=== PATIENT | male | born 1955 | race Caucasian/White ===

== ENCOUNTER 2020-09-22 13:25 | Observation (INO) | payer OTHER, SELFPAY ==
[2020-09-22] VITALS (28 sets, daily range): BP systolic 118–187; BP diastolic 76–106; PULSE 81–195; RESP 13–25; TEMP 36.3–36.9; O2SAT 94–98; BMI 29.2; BMI 32.7
--- NOTE | 2020-09-22 13:36 | DI.CT.S_ITS ---
PROCEDURE: CT STROKE INDICATIONS: confusion, slurring words TECHNIQUE: Noncontrast 4.5 mm thick angled axial sections acquired from the foramen magnum to the vertex, with coronal reformats. For radiation dose reduction, the following was used: automated exposure control, adjustment of mA and/or kV according to patient size. COMPARISON: None. FINDINGS: Image quality: Excellent. CSF spaces: Basal cisterns are patent. No extra-axial fluid collections. Ventricles are normal in size and shape. Brain: No midline shift. No intracranial masses or hemorrhage. No area of hypodensity in a large vascular distribution to suggest acute infarction. Intracranial atherosclerotic calcifications. Skull and face: Calvarium and visualized facial bones are intact, without suspicious lesions. Sinuses: Visualized sinuses and mastoids are clear. IMPRESSION: No acute intracranial abnormality. Comment: Findings were discussed with Dr. Angelo Figueroa at 1:55 p.m. This study fulfills neurological imaging criteria for inclusion or exclusion of acute stroke therapies based on available published neurological imaging guidelines. Dictated by: Steven Rader M.D. on 09/22/2020 at 13:52 Approved by: Steven Rader M.D. on 09/22/2020 at 13:56
--- NOTE | 2020-09-22 14:07 | ED_ITS ---
HPI - Neuro Symptoms/Deficit General Chief Complaint: Neuro Symptoms/Deficit Stated Complaint: cognitive impairment, confusion, started today Time Seen by Provider: 09/22/20 13:36 Source: patient Mode of arrival: Ambulatory Limitations: no limitations History of Present Illness HPI Narrative: Patient is a 65-year-old male who arrives to the emergency department by private vehicle with his for evaluation of confusion. Unsure the exact onset because his was not with him at the time but it was this morning. His states that he was at his normal state health this morning. He was out on a boat with a friend fishing for shrimp when the patient's received a call from the friend that he was on the boat with stating that he was acting funny. Apparently he seemed to be very confused. Was repetitively asking questions. Unsure if there was any slurring of the words but potentially this did happen. Did not appear to be any weakness. When the patient's arrived to pick him up to bring him to the emergency department she stated that he did seem somewhat confused and in route here to the emergency department asked her several times the same question over and over. Upon arrival here to the emergency department patient has no symptoms. He states that he thinks that maybe he was confused earlier but nothing more specific than this. On Anticoagulants: No Related Data Home Medications Medication Instructions Recorded Confirmed losartan 09/22/20 Allergies Allergy/AdvReac Type Severity Reaction Status Date / Time No Known Drug Allergies Allergy Verified 09/22/20 13:29 Review of Systems Constitutional Constitutional: Denies headache(s) Eyes Eyes: Denies blurry vision ENT Ears, Nose, Mouth, and Throat: Denies headache(s) Cardiovascular Cardiovascular: Denies chest pain and Denies dyspnea Respiratory Respiratory: Denies dyspnea Gastrointestinal Gastrointestinal: Denies abdominal pain Genitourinary Genitourinary: Reports system reviewed and no additional complaints, except as documented Musculoskeletal Musculoskeletal: Reports system reviewed and no additional complaints, except as documented Integumentary/Breasts Skin/Breast: Reports system reviewed and no additional complaints, except as documented Neurologic Neurologic: Reports confusion and Denies headache(s) Psychiatric Psychiatric: Reports confusion Endocrine Endocrine: Reports system reviewed and no additional complaints, except as documented Hematologic/Lymphatic On Anticoagulants: No Allergic/Immunologic Allergic/Immunologic: Reports system reviewed and no additional complaints, except as documented Patient History Medical History Atonic bladder Chronic kidney disease Hypertension Sleep apnea, obstructive Social History household members: family Smoking Status: Never smoker alcohol intake: current Smoking Status: Unknown if ever smoked alcohol intake frequency: a few times a week Substance Use Type: does not use Exam Initial Vital Signs Initial Vital Signs: Vital Signs Temperature 98.4 F 09/22/20 13:29 Pulse Rate 81 09/22/20 13:29 Respiratory Rate 14 09/22/20 13:29 Blood Pressure 130/97 H 09/22/20 13:29 Pulse Oximetry 97 09/22/20 13:29 Const General: cooperative, healthy appearing, comfortable and well developed HENME Head: normal to inspection and normocephalic Eyes General: appearance normal, both eyes and all related structures Resp Effort & Inspection: normal respiratory effort Auscultation: clear to auscultation bilaterally Cardio Rate: tachycardic Rhythm: abnormal rhythm Pulses: radial pulses present GI Inspection: non-distended Palpation: soft and No tender Back/Spine/Pelvis Back: normal to inspection Skin Lesions: no lesions Rashes: no rashes Neuro General: patient alert, patient awake, patient oriented x3 and moves all extremities Gait: normal gait Sensory Exam: no sensory deficits noted Extrem General: normal to inspection, capillary refill normal and No edema Psych Appearance: grossly normal and well kempt Scores GCS Brennen coma scale eye opening: Spontaneous Brennen coma scale verbal response: Orientated Deputy coma scale motor response: Obey commands Brennen coma scale total score: 15 Course Orders Ordered: ED Orders 09/22/20 13:25 Magnesium Stat 09/22/20 13:36 CT Stroke Stat 09/22/20 13:40 Acetaminophen Stat Complete Blood Count AUTO DIFF Stat Comprehensive Metabolic Panel Stat Ethanol (ETOH) Stat Lipase Stat Troponin & CK Cardiac Panel Stat 09/22/20 14:10 Urine Drug Screen, Rapid Stat EKG-12 Lead Stat 09/22/20 14:25 Ammonia (NH3) Stat 09/22/20 15:13 COVID19 - ADMIT (TRAUMA MANAGER swab/PCR) Stat Acetaminophen (Acetaminophen 325 Mg Tablet) 650 mg PO Q6HR PRN PRN Reason: Fever/pain Apixaban (Apixaban 5 Mg Tablet) 5 mg PO BID RYAN Diltiazem HCl (Diltiazem Sr 90 Mg) 90 mg PO BID RYAN Diltiazem HCl 125 mg/ Sodium (Chloride) 125 mls @ 5 mls/hr IV TITRATE RYAN; Protocol Last Titration: 09/22/20 16:30 Dose: 15 mg/hr, 15 mls/hr Documented by: Titration: 09/22/20 16:01 Dose: 15 mg/hr, 15 mls/hr Documented by: Titration: 09/22/20 15:02 Dose: 10 mg/hr, 10 mls/hr Documented by: Admin: 09/22/20 14:37 Dose: 5 mg/hr, 5 mls/hr Documented by: JIE Losartan Potassium (Losartan 50 Mg Tablet) 50 mg PO DAILY RYAN Discontinued Medications Aspirin (Aspirin 81 Mg Chew Tab) 324 mg PO NOW ONE Stop: 09/22/20 14:15 Last Admin: 09/22/20 14:31 Dose: 324 mg Documented by: JIE Diltiazem HCl (Diltiazem 5 Mg/Ml Sdv) 10 mg IV NOW ONE Stop: 09/22/20 14:15 Last Admin: 09/22/20 14:31 Dose: 10 mg Documented by: JIE Lactated Ringer's (Lactated Ringers) 1,000 mls @ 150 mls/hr IV CONT RYAN Vital Signs Vital signs: Vital Signs - 8 hr 09/22/20 13:29 09/22/20 14:17 09/22/20 14:18 Temperature 98.4 F Pulse Rate 81 181 H 181 H Respiratory Rate 14 16 17 Blood Pressure 130/97 H 140/85 Pulse Oximetry 97 96 95 09/22/20 14:30 09/22/20 14:31 09/22/20 14:44 Temperature Pulse Rate 182 H 195 H 132 H Respiratory Rate 16 19 Blood Pressure 118/81 118/81 170/101 H Pulse Oximetry 95 95 09/22/20 14:45 Temperature Pulse Rate 133 H Respiratory Rate 18 Blood Pressure 175/84 H Pulse Oximetry 96 MDM - Neuro Symptoms/Deficit Lab Data Attestation: I reviewed the patient's lab results. Result diagrams: 09/22/20 13:40 09/22/20 13:40 Labs: Lab Results 09/22/20 09/22/20 09/22/20 Range/Units 13:25 13:40 13:40 WBC 11.2 H (4.5-11.0) X10^3/uL RBC 5.69 (4.5-5.9) X10^6/uL Hgb 15.9 (13.5-17.5) g/dL Hct 48.7 (41-53) % MCV 85.6 (80-100) fL MCH 27.9 (26-34) PG MCHC 32.6 (30-36) % RDW 15.0 H (11.6-14.8) % Plt Count 221 (150-400) X10^3/uL Neut % (Auto) 88.9 H (50-75) % Lymph % (Auto) 7.3 L (25-40) % Greenwood % (Auto) 3.4 (3-14) % Eos % (Auto) 0.1 L (2-4) % Baso % (Auto) 0.3 (0-2) % Neut # (Auto) 9900 H (0709-8685) /uL Lymph # (Auto) 800 L (8020-1790) /uL Greenwood # (Auto) 400 (0-900) /uL Eos # (Auto) 0 (0-450) /uL Baso # (Auto) 0 (0-100) /uL Sodium 141 (137-145) mmol/L Potassium 3.7 (3.4-5.1) mmol/L Chloride 105 (98-107) mmol/L Carbon Dioxide 24 (22-32) mmol/L BUN 25 H (9-20) mg/dL Creatinine 1.36 H (0.66-1.25) mg/dL Estimated GFR 52.8 L (>60) mL/min BUN/Creatinine Ratio 18.4 (6-22) Glucose 111 H (80-110) mg/dL Calcium 9.6 (8.4-10.2) mg/dL Magnesium 1.9 (1.6-2.3) mg/dL Total Bilirubin 0.9 (0.2-1.3) mg/dL AST 48 (17-59) IU/L ALT 39 (<50) IU/L Alkaline Phosphatase 67 (38-126) U/L Ammonia (9-30) umol/L Total Creatine Kinase 164 (55-170) U/L CK-MB (CK-2) 2.52 H (<2.37) ng/mL CK-MB (CK-2) Rel Index 1.5 (1.5-5.0) % Troponin I < 0.012 (0.01-0.034) ng/mL Total Protein 8.0 (6.3-8.2) g/dL Albumin 4.7 (3.5-5.0) g/dL Globulin 3.3 (1.7-4.1) g/dL Albumin/Globulin Ratio 1.4 (1.0-2.8) Lipase 78 (23-300) U/L Acetaminophen < 10 L (10-30) ug/mL Ethyl Alcohol < 10 ( - 10) mg/dL 09/22/20 Range/Units 14:25 WBC (4.5-11.0) X10^3/uL RBC (4.5-5.9) X10^6/uL Hgb (13.5-17.5) g/dL Hct (41-53) % MCV (80-100) fL MCH (26-34) PG MCHC (30-36) % RDW (11.6-14.8) % Plt Count (150-400) X10^3/uL Neut % (Auto) (50-75) % Lymph % (Auto) (25-40) % Greenwood % (Auto) (3-14) % Eos % (Auto) (2-4) % Baso % (Auto) (0-2) % Neut # (Auto) (9695-5267) /uL Lymph # (Auto) (6986-6106) /uL Greenwood # (Auto) (0-900) /uL Eos # (Auto) (0-450) /uL Baso # (Auto) (0-100) /uL Sodium (137-145) mmol/L Potassium (3.4-5.1) mmol/L Chloride (98-107) mmol/L Carbon Dioxide (22-32) mmol/L BUN (9-20) mg/dL Creatinine (0.66-1.25) mg/dL Estimated GFR (>60) mL/min BUN/Creatinine Ratio (6-22) Glucose (80-110) mg/dL Calcium (8.4-10.2) mg/dL Magnesium (1.6-2.3) mg/dL Total Bilirubin (0.2-1.3) mg/dL AST (17-59) IU/L ALT (<50) IU/L Alkaline Phosphatase (38-126) U/L Ammonia < 9 L (9-30) umol/L Total Creatine Kinase (55-170) U/L CK-MB (CK-2) (<2.37) ng/mL CK-MB (CK-2) Rel Index (1.5-5.0) % Troponin I (0.01-0.034) ng/mL Total Protein (6.3-8.2) g/dL Albumin (3.5-5.0) g/dL Globulin (1.7-4.1) g/dL Albumin/Globulin Ratio (1.0-2.8) Lipase (23-300) U/L Acetaminophen (10-30) ug/mL Ethyl Alcohol ( - 10) mg/dL Imaging Data CT scan - head: Radiologist's Impression: [address] [id number] Scan ReportSigned Patient: Guille Morales MMR#: [id number]: 7Acct:[id number]/Sex: 65 / MDate of Service: 09/22/20Loc: EDAccession Number: [id number] Procedure: CT Stroke Ordering Provider: Angelo Figueroa D.O. PROCEDURE: CT STROKE INDICATIONS: confusion, slurring words TECHNIQUE: Noncontrast 4.5 mm thick angled axial sections acquired from the foramen magnum to the vertex, with coronal reformats. For radiation dose reduction, the following was used: automated exposure control, adjustment of mA and/or kV according to patient size. COMPARISON: None. FINDINGS: Image quality: Excellent. CSF spaces: Basal cisterns are patent. No extra-axial fluid collections. Ventricles are normal in size and shape. Brain: No midline shift. No intracranial masses or hemorrhage. No area of hypodensity in a large vascular distribution to suggest acute infarction. Intracranial atherosclerotic calcifications. Skull and face: Calvarium and visualized facial bones are intact, without suspicious lesions. Sinuses: Visualized sinuses and mastoids are clear. IMPRESSION: No acute intracranial abnormality. Comment: Findings were discussed with Dr. Angelo Figueroa at 1:55 p.m. This study fulfills neurological imaging criteria for inclusion or exclusion of acute stroke therapies based on available published neurological imaging guidelines. Dictated by: Steven Rader M.D. on 09/22/2020 at 13:52 Approved by: Steven Rader M.D. on 09/22/2020 at 13:56 ECG Data Attestation: I personally reviewed and interpreted this ECG as follows: Prior ECG tracings: not available for review Interpretation: Atrial fibrillation Ventricular rate of 173 Left axis deviation Normal QRS MDM Narrative Medical decision making narrative: Upon arrival patient really does not describe any symptoms. He states that he maybe was a little confused earlier today but does not think that he is confused now. He is alert oriented x3 but obviously is somewhat slow to answer questions. He has no chest pain or shortness of breath. In triage was reported that his heart rate was less than 100. Patient received an EKG and workup for his presenting symptoms and it was found that he was in AFib with RVR. Heart rate was greater than 150. Patient does not express any chest pain or shortness of breath or fast heart rate. Unsure exactly when the symptoms started. Could have potentially been since arrival here to the emergency department given his triage vitals or he potentially could of been in an out of atrial fibrillation for longer. There was some concern about TIA because of his confusion and also because the atrial fibrillation. Was given an aspirin. Start on Cardizem. Discussed the case with Dr. Olivo with Internal Medicine who will admit for further evaluation and treatment. Discussed the admission with the patient. Both he and his expressed understanding and agreement. Critical Care Time Critical Care Time Critical Care Time: Yes Total Critical Care Time: 35 Attestation: The high probability of a clinically significant, sudden or life threatening deterioration of the cardiovascular system(s) required my full and direct attention, intervention and personal management. The aggregate critical care time was 35 minutes. This time is in addition to time spent performing reported procedures but includes the following: [x] Data Review and interpretation [x] Patient assessment and monitoring of vital signs [x] Documentation [x] Medication orders and management Discharge Plan Departure Patient Disposition: Admitted As Inpatient Clinical Impression: Confusion, Atrial fibrillation with RVR Admit Date/Time: 09/22/20 14:53 Admit Provider: Antoni Olivo
[2020-09-22 14:19] LABS: Add Manual Diff / Slide Review NO; Basophils Absolute Auto 0 /uL (0-100); Basophils Percent Auto 0.3 % (0-2); Eosinophils Absolute Auto 0 /uL (0-450); Eosinophils Percent Auto 0.1 % (2-4); Hematocrit 48.7 % (41-53); Hemoglobin 15.9 g/dL (13.5-17.5); Lymphocytes Absolute Auto 800 /uL (1100-4500); Lymphocytes Percent Auto 7.3 % (25-40); Mean Corpuscular HGB Conc 32.6 % (30-36); Mean Corpuscular Hemoglobin 27.9 PG (26-34); Mean Corpuscular Volume 85.6 fL (80-100); Monocytes Absolute Auto 400 /uL (0-900); Monocytes Percent Auto 3.4 % (3-14); Neutrophils Absolute Auto 9900 /uL (1500-7000); Neutrophils Percent Auto 88.9 % (50-75); Platelet Count 221 X10^3/uL (150-400); Red Blood Cell Count 5.69 X10^6/uL (4.5-5.9); White Blood Cell Count 11.2 X10^3/uL (4.5-11.0)
[2020-09-22 14:21] LABS: Acetaminophen < 10 ug/mL (10-30); Alanine Aminotransferase 39 IU/L (<50); Albumin 4.7 g/dL (3.5-5.0); Albumin Globulin Ratio 1.4 (1.0-2.8); Alkaline Phosphatase 67 U/L (38-126); Aspartate Aminotransferase 48 IU/L (17-59); BUN Creatinine Ratio 18.4 (6-22); Bilirubin Total 0.9 mg/dL (0.2-1.3); Blood Urea Nitrogen 25 mg/dL (9-20); Calcium 9.6 mg/dL (8.4-10.2); Carbon Dioxide 24 mmol/L (22-32); Chloride 105 mmol/L (98-107); Creatine Kinase 164 U/L (55-170); Estimated Glomerular Filt Rate 52.8 mL/min (>60); Ethanol (ETOH) < 10 mg/dL; Globulin 3.3 g/dL (1.7-4.1); Glucose 111 mg/dL (80-110); Lipase 78 U/L (23-300); Potassium 3.7 mmol/L (3.4-5.1); Sodium 141 mmol/L (137-145)
[2020-09-22] MEDS: dilTIAZem 5 MG/ML SDV 10 MG IV (14:31)
[2020-09-22] MEDS: ASPIRIN 81 MG CHEW TAB 324 MG PO (14:31)
[2020-09-22 14:32] LABS: Magnesium 1.9 mg/dL (1.6-2.3)
[2020-09-22 14:32] LABS: Troponin I < 0.012 ng/mL (0.01-0.034)
[2020-09-22 14:36] LABS: CKMB % Relative Index 1.5 % (1.5-5.0); Creatine Kinase MB 2.52 ng/mL (<2.37); HEMOLYSIS 20 (0-50)
[2020-09-22] MEDS: dilTIAZem 125 MG in SODIUM CHLORIDE 0.9% 100 ML IV (14:37)
[2020-09-22 14:43] LABS: Ammonia (NH3) < 9 umol/L (9-30)
--- NOTE | 2020-09-22 15:21 | PC.NURSE ---
Pt speech repetitive, does not recall earlier events.
[2020-09-22 16:10] LABS: COVID19 - ADMIT (NP swab/PCR) Negative (Negative)
--- NOTE | 2020-09-22 16:24 | PC.NURSE ---
report given to Tasneem [facility] ICU
--- NOTE | 2020-09-22 16:51 | DI.RAD.S_ITS ---
PROCEDURE: XR CHEST 1V INDICATIONS: afib TECHNIQUE: One view of the chest was acquired. COMPARISON: None. FINDINGS: Surgical changes and devices: None. Lungs and pleura: Lungs are clear. No pleural effusions or pneumothorax. Mediastinum: Mediastinal contours appear normal. Heart size is within normal limits given portable technique. Bones and chest wall: No suspicious bony lesions. Overlying soft tissues appear unremarkable. IMPRESSION: Chest without acute cardiopulmonary abnormalities Dictated by: Sukumar Romo M.D. on 09/22/2020 at 18:58 Approved by: Sukumar Romo M.D. on 09/22/2020 at 18:58
--- NOTE | 2020-09-22 16:55 | DI.ECHO.S_ITS ---
[facility] +---------+ : : [address] [place] : : : : [id number] : : : : Phone: [phone] Echocardiogram Report + + :Name: TARAS GLASER Study Date: 09/23/2020 Height: 71 in : :[facility] ReadingLocation: Weight: 210 lb : : Gender: Male BSA: 2.2 m2 : :: 1955 Age: 65 yrs BP: 121/79 mmHg: :Reason For Study: ATRIAL FIBRILLATION : :Ordering Physician: ALESIA, : :TRELL Performed By: Vandana Ritter : :Referring: TRELL LOPEZ : + + Interpretation Summary The left ventricle is normal in size. Left ventricular systolic function is normal. The ejection fraction is estimated to be 50-55%. There are no focal wall motion abnormalities. The right ventricle is normal size. Right ventricular systolic function is at the lower limits of normal. The right ventricular systolic pressure is estimated to be at least 28 mmHg based on an estimated right atrial pressure of 8 mm Hg. The left atrium is severely dilated. The right atrium is moderately dilated. The aortic valve is bicuspid. The aortic valve opens well. There is no other significant valvular heart disease. The ascending aorta is mildly enlarged. Procedure: A two-dimensional transthoracic echocardiogram with color flow and Doppler was performed. The study quality was technically adequate. There is no prior echocardiogram noted for this patient. The patient was in atrial fibrillation with heart rates between 88-124 bpm during the exam. Left Ventricle: The left ventricle is normal in size. Left ventricular wall thickness is borderline increased. Left ventricular systolic function is normal. The ejection fraction is estimated to be 50-55%. There are no focal wall motion abnormalities. Diastolic function could not be accurately assessed due to atrial fibrillation. Right Ventricle: The right ventricle is normal size. Right ventricular systolic function is at the lower limits of normal. Atria: The left atrium is severely dilated. The right atrium is moderately dilated. There is no Doppler evidence for an interatrial shunt. Mitral Valve: The mitral valve leaflets appear mildly thickened, but open well. There is trace mitral regurgitation. Aortic Valve: The aortic valve opens well. The aortic valve is bicuspid. There is no aortic valve stenosis. No aortic regurgitation is present. Tricuspid Valve: The tricuspid valve is normal in structure and function. There is mild tricuspid regurgitation. The right ventricular systolic pressure is estimated to be at least 28 mmHg based on an estimated right atrial pressure of 8 mm Hg. Pulmonic Valve: The pulmonic valve is not well seen, but is grossly normal. There is no pulmonic valvular regurgitation. There is no other significant valvular heart disease. Great Vessels: The aortic root is normal size. The ascending aorta is mildly enlarged. The IVC is dilated (diameter is greater than 2.1 cm) yet it collapses greater than 50% with a sniff. This suggests a right atrial pressure of 8 mm Hg. Pericardium/ Pleura There is no pericardial effusion. There is no pleural effusion. MMode/2D Measurements & Calculations LVIDd: 5.4 cm LVOT diam: 2.1 cm LVIDs: 4.4 cm Ao root diam: 3.3 cm FS: 18.0 % asc Aorta Diam: 3.7 cm EPSS: 0.90 cm Ao Arch Diam (Prox Trans): 3.0 cm IVSd: 1.3 cm LVPWd: 1.2 cm LV huber. diameter/BSA (cm/m^2): 2.5 LV sys. diameter/BSA (cm/m^2): 2.1 LA A2 area: 31.1 cm2 RA long axis: 6.2 cm LA A4 area: 30.9 cm2 RA area: 27.5 cm2 LA length (vol): 7.1 cm RA vol: 103.0 ml LA vol: 114.5 ml RA : 47.8 ml/m2 LA vol index: 53.2 ml/m2 IVC diam: 2.3 cm RVD1 (basal): 3.1 cm TAPSE: 1.7 cm Doppler Measurements & Calculations Ao V2 max: 123.4 cm/sec LVOT Max Jeronimo: 90.9 cm/sec Ao V2 mean: 89.9 cm/sec LV V1 max P.3 mmHg Ao max P.1 mmHg LV V1 VTI: 14.9 cm Ao mean P.6 mmHg DARRYL(I,D): 2.6 cm2 Ao V2 VTI: 19.1 cm DARRYL(V,D): 2.5 cm2 sev ratio: 0.78 DARRYL indexed to BSA (cm^2/m^2): 1.2 MV E max jeronimo: 124.6 cm/sec TR max jeronimo: 224.0 cm/sec MV A max jeronimo: 1.4 cm/sec TR max P.1 mmHg MV E/A: 89.8 PA V2 max: 91.7 cm/sec Med Peak E' Jeronimo: 12.4 cm/sec PA V2 mean: 63.1 cm/sec E/E' med: 10.1 PA mean P.8 mmHg Lat Peak E' Jeronimo: 11.0 cm/sec PA pr(Accel): 46.5 mmHg E/E' lat: 11.4 E/e' average: 10.7 MV dec time: 0.17 sec SV(LVOT): 50.5 ml Reading Physician:01:01 PM
--- NOTE | 2020-09-22 17:30 | PM.HP.1 ---
History of Present Illness History of Present Illness Date Patient Seen: 09/22/20 Time Patient Seen: 17:00 Date of Onset of Symptoms: 09/22/20 Chief complaint: cognitive impairment, confusion, started today Narrative: Patient is a 65-year-old male with history of hypertension, sleep apnea, on CPAP, mild CKD, atonic bladder presents to ED due to acute confusional episode. He was out on his boat with a friend and noted to appear disoriented with repetitive questioning. Patient's met him at the doc and also noted that he appeared confused and kept repeating himself. He has never experienced this kind of thing before. When he came in to ED, initial heart rate was 80 but subsequent heart rates were variable in the 150s to 180 in AFib rhythm. Patient has not been diagnosed with AFib in the past but states that for a long time he has noticed his heart rate can get real high. Patient denies dyspnea on exertion, chest pain, palpitations. He denies acute vision change, facial droop, slurred speech, unilateral weakness. He has not had fevers, chills or cough. He self caths for atonic bladder. He uses CPAP for sleep apnea. In ED, patient was also hypertensive with BP in the 180/105 range in addition to AFib tachycardia. O2 sats were normal. His WBC is mildly elevated at 11.2. His creatinine is 1.36 consistent with known history of mild CKD. Troponin is normal. EKG shows AFib with nonspecific T-wave abnormality. Family history: Brother with AFib. Father had angina. Social history: , nonsmoker, occasional EtOH, no drug use. He is very physically active. Patient History Medical History (Updated 09/22/20 @ 17:40 by Antoni Olivo MD) Atonic bladder Chronic kidney disease Hypertension Sleep apnea, obstructive Family & Social History Safety & Behavioral: Feels Safe in Current Yes Environment Been Physically Hurt or No Threatened By a Person Tobacco & Substance use: Smoking Status Unknown if ever smoked alcohol intake frequency a few times a week Substance Use Type does not use Meds Home Medications and Allergies Home Medications Medication Instructions Recorded Confirmed Type losartan 09/22/20 History Allergies Allergy/AdvReac Type Severity Reaction Status Date / Time No Known Drug Allergies Allergy Verified 09/22/20 13:29 Review of Systems Review of Systems ROS: Yes All systems reviewed with the patient and are negative except as otherwise documented Exam Vital Signs (past 8 hours): - 09/22/20 13:29 09/22/20 14:17 09/22/20 14:18 Temperature 98.4 F Pulse Rate 81 181 H 181 H Respiratory Rate 14 16 17 Blood Pressure 130/97 H 140/85 Pulse Oximetry 97 96 95 09/22/20 14:30 09/22/20 14:31 09/22/20 14:44 Temperature Pulse Rate 182 H 195 H 132 H Respiratory Rate 16 19 Blood Pressure 118/81 118/81 170/101 H Pulse Oximetry 95 95 09/22/20 14:45 09/22/20 15:00 09/22/20 15:26 Temperature Pulse Rate 133 H 159 H 150 H Respiratory Rate 18 21 17 Blood Pressure 175/84 H 185/105 H 174/106 H Pulse Oximetry 96 95 96 09/22/20 15:30 09/22/20 15:47 09/22/20 16:00 Temperature Pulse Rate 140 H 142 H 132 H Respiratory Rate 13 14 18 Blood Pressure 169/102 H 175/103 H 169/95 H Pulse Oximetry 97 96 97 Oxygen Delivery Method Room Air Narrative Exam Narrative: General: Alert, pleasant and cooperative male in no acute distress HEENT: Nontraumatic, pupils equal and reactive, EOMI, no facial droop Neck: No lymphadenopathy Lungs: Clear to auscultation Heart: Normal S1 and S2, irregularly irregular rhythm, no murmur Abdomen: Soft, nontender, no HSM Extremities: No edema Neurological: A and O x3, affect normal, no aphasia or dysarthria, no pronator drift, no leg weakness, normal finger to nose and heel to bar, normal light touch Objective Labs Result Diagrams: 09/22/20 13:40 09/22/20 13:40 Labs: Laboratory Results - last 24 hr 09/22/20 09/22/20 09/22/20 13:25 13:40 13:40 WBC 11.2 H RBC 5.69 Hgb 15.9 Hct 48.7 MCV 85.6 MCH 27.9 MCHC 32.6 RDW 15.0 H Plt Count 221 Neut % (Auto) 88.9 H Lymph % (Auto) 7.3 L [place] % (Auto) 3.4 Eos % (Auto) 0.1 L Baso % (Auto) 0.3 Neut # (Auto) 9900 H Lymph # (Auto) 800 L [place] # (Auto) 400 Eos # (Auto) 0 Baso # (Auto) 0 Sodium 141 Potassium 3.7 Chloride 105 Carbon Dioxide 24 BUN 25 H Creatinine 1.36 H Estimated GFR 52.8 L BUN/Creatinine Ratio 18.4 Glucose 111 H Calcium 9.6 Magnesium 1.9 Total Bilirubin 0.9 AST 48 ALT 39 Alkaline Phosphatase 67 Ammonia Total Creatine Kinase 164 CK-MB (CK-2) 2.52 H CK-MB (CK-2) Rel Index 1.5 Troponin I < 0.012 Total Protein 8.0 Albumin 4.7 Globulin 3.3 Albumin/Globulin Ratio 1.4 Lipase 78 Acetaminophen < 10 L Ethyl Alcohol < 10 SARS-CoV-2 (PCR) 09/22/20 09/22/20 14:25 15:13 WBC RBC Hgb Hct MCV MCH MCHC RDW Plt Count Neut % (Auto) Lymph % (Auto) [place] % (Auto) Eos % (Auto) Baso % (Auto) Neut # (Auto) Lymph # (Auto) [place] # (Auto) Eos # (Auto) Baso # (Auto) Sodium Potassium Chloride Carbon Dioxide BUN Creatinine Estimated GFR BUN/Creatinine Ratio Glucose Calcium Magnesium Total Bilirubin AST ALT Alkaline Phosphatase Ammonia < 9 L Total Creatine Kinase CK-MB (CK-2) CK-MB (CK-2) Rel Index Troponin I Total Protein Albumin Globulin Albumin/Globulin Ratio Lipase Acetaminophen Ethyl Alcohol SARS-CoV-2 (PCR) Negative Assessment & Plan Assessment & Plan narrative: 1. Possible TIA, transient global amnesia -patient presents due to acute disorientation and repetitive questioning, improving since ED, symptoms are typical of transient global amnesia, TIA can be an etiology of TGA -patient is in AFib -head CT no acute finding -monitor mental status -consider MRI stroke protocol for recurrent or new symptoms 2. Atrial fibrillation with RVR, likely chronic -patient is asymptomatic, he notes spikes in his heart rate for a long time, presents with tachycardia and is in AFib on EKG and telemetry, troponin normal -continue diltiazem drip initiated in ED -started oral diltiazem SR 90 mg b.i.d., titrate dose as required, add beta-darnell if required -transthoracic echo -check TSH -start Eliquis 5 mg b.i.d. for stroke prevention 3. Hypertension -patient presents hypertensive with ED BP 180/105 range, patient states blood pressures at home typically run mildly elevated -patient takes losartan unknown dose for BP control -losartan 50 mg q.d. until patient's home dose is ascertained -also started on diltiazem SR for AFib rate control 4. Chronic kidney disease stage 3 -creatinine 1.36 which by history appears at baseline 5. Mild leukocytosis new -WBC 11.2 likely stress related, patient afebrile without overt signs of infection -check urinalysis -chest x-ray 6. History of of bladder atonia -patient may self catheterization as needed Patient admitted to ICU under observation status. Surrogate decision maker: Spouse DVT prophylaxis: Started Eliquis
--- NOTE | 2020-09-22 19:29 | PC.NURSE ---
1645 - Pt to room from ER. Able to stand-pivot to bed. Somewhat impulsive movements. Pt is hard of hearing, wearing hearing aids and assistive device around neck. Pt reports need to void, hx of self-cath. Requested that patient wait for clean supplies. While out of the room pt preformed self-cath, sample discarded prior to sending to lab, will need to recollect. MD aware pt self-cath. HR on arrival 120's, increasing to 140's with activity, Diltiazem gtt at 15mg/hr. Pt denies lightheadedness, denies chest pain. Pt reports hx of sleep apnea, to bring in home C-Pap machine. Oriented to room and routine. Educated to safety and call light use. Bed alarm on.
[2020-09-22] MEDS: APIXABAN 5 MG TABLET PO (20:25)
[2020-09-22 21:09] LABS: Ur Creatinine Normal (Normal); Ur Specific Gravity Normal (Normal); Urine pH Normal (Normal)
[2020-09-22 21:10] LABS: UR Morphine/Opiate cutoff 300 Negative (Negative); Urine Amphetamines Negative (Negative); Urine Barbiturates Negative (Negative); Urine Benzodiazepines Negative (Negative); Urine Cocaine Negative (Negative); Urine MDMA Negative (Negative); Urine Methadone Negative (Negative); Urine Methamphetamines Negative (Negative); Urine Oxycodone Negative (Negative); Urine Phencyclidine Negative (Negative); Urine Tetrahydrocannabinol Negative (Negative); Urine Tricyclic Antidepressant Negative (Negative)
[2020-09-22 21:33] LABS: TSH w/ Reflex to FT4 3.62 uIU/mL (0.47-4.68)
--- NOTE | 2020-09-22 22:39 | PC.NURSE ---
Pt continues to deny any discomfort r/t elevated HR rate down from 130's to 80's when not mobilizing. PO dilt given. Rate slowly coming down, tapering dilt gtt currently at 5ml/hr. PT continues to endorse no chest pain.
[2020-09-23] VITALS (12 sets, daily range): BP systolic 111–138; BP diastolic 71–95; PULSE 62–98; RESP 11–21; TEMP 36.1–36.5; O2SAT 95–98
[2020-09-23 05:25] LABS: Add Manual Diff / Slide Review NO; Basophils Absolute Auto 100 /uL (0-100); Basophils Percent Auto 0.7 % (0-2); Eosinophils Absolute Auto 200 /uL (0-450); Eosinophils Percent Auto 2.1 % (2-4); Hematocrit 42.8 % (41-53); Hemoglobin 14.1 g/dL (13.5-17.5); Lymphocytes Absolute Auto 1800 /uL (1100-4500); Lymphocytes Percent Auto 20.8 % (25-40); Mean Corpuscular HGB Conc 32.9 % (30-36); Mean Corpuscular Hemoglobin 28.1 PG (26-34); Mean Corpuscular Volume 85.4 fL (80-100); Monocytes Absolute Auto 700 /uL (0-900); Monocytes Percent Auto 8.1 % (3-14); Neutrophils Absolute Auto 5900 /uL (1500-7000); Neutrophils Percent Auto 68.3 % (50-75); Platelet Count 202 X10^3/uL (150-400); Red Blood Cell Count 5.01 X10^6/uL (4.5-5.9); Red Cell Distribution Width 14.9 % (11.6-14.8); White Blood Cell Count 8.7 X10^3/uL (4.5-11.0)
[2020-09-23 05:29] LABS: BUN Creatinine Ratio 19.7 (6-22); Blood Urea Nitrogen 24 mg/dL (9-20); Calcium 8.7 mg/dL (8.4-10.2); Carbon Dioxide 26 mmol/L (22-32); Chloride 105 mmol/L (98-107); Estimated Glomerular Filt Rate 59.8 mL/min (>60); Glucose 100 mg/dL (80-110); HEMOLYSIS < 15 (0-50); Potassium 3.3 mmol/L (3.4-5.1); Sodium 138 mmol/L (137-145)
--- NOTE | 2020-09-23 06:30 | PC.NURSE ---
Pt. has been off of Dilt. gtt since 131, pt. did receive po Diltiazem yesterday on pm shift. HR so far remain afib CVR in the 80's-90's and stable B/P. Pt. uses his own CPAP at bedtime, sats in the high 90's, lungs CTA. Pt. denies pain, and self cath himself this morning large amt., was unable to measure it since pt. just let it drain into the toilet instead of the urinal. Plan today is pt. to have head MRI and ECHO.
[2020-09-23] MEDS: POTASSIUM CHLORIDE IN WATER 10 MEQ/100 ML PIGGYBACK 100 MEQ IV (07:07)
[2020-09-23] MEDS: dilTIAZem CD 240 MG CAP PO (09:13)
[2020-09-23] MEDS: POTASSIUM CHLORIDE 20 MEQ TAB 40 MEQ PO (09:14)
[2020-09-23] MEDS: APIXABAN 5 MG TABLET PO (09:14)
[2020-09-23] MEDS: LOSARTAN 50 MG TABLET PO (09:14)
--- NOTE | 2020-09-23 12:08 | CM.DANOTE ---
Addendum entered by Irma Lares LPN 09/23/20 15:46: A check in now shows that pt did well and did d/c to home earlier this afternoon Original Note: Discharge Planning/Care Management DCP: assessment: case received and discussed in Team Rounds. Dr. Olivo stated MRI and ECHO pending and with likely d/c home after that. Pt is a 65 year old male who admitted to care of hospitalist team Payer: [facility]: confirmed by Admit Counselor group. Pt uses CPAP at home/night and also does self cath. He is doing this here. Will check in later when tests results known. CM Discharge Assessment Start: 09/23/20 12:06 Freq: Status: Active Protocol: Document 09/23/20 12:06 ITV (Rec: 09/23/20 12:07 ITV [id number]) Discharge Planning Assessment Advance Directives? No History Provided By Medical Record Prior Living Arrangements House Household Members spouse
--- NOTE | 2020-09-23 13:43 | PC.NURSE ---
Pt walked briskly, several laps, around nurses station. HR ranged from 110s-150s, mainly sustained in 120s. After resting for a minute, HR decreases to 100-110. Pt denies any cardiac symptoms with activity or with rest. Discussed with Dr. Olivo. States he will dc patient to home.
--- NOTE | 2020-09-23 15:44 | PC.NURSE ---
Pt dc'd to home per order. Provided dc education to pt and . Reviewed dx, medications, need for f/u, stroke risk/education, when to seek emergency medical treatment, monitoring parameters, dietary needs. Both pt and verbalize understanding. Pt dressed himself. All belongings were gathered. Pt declines a w/c for transport. Escorted to [facility] by [facility] with all belongings. Pt left at 1345 in no apparent distress.
== END 2020-09-23 15:45 | disposition home or self-care (01) ==
LOC: ED 14:18 → AC 15:07 → ICU 09-23 09:45 → AC 09-24 08:25
PROVIDERS: Admitting Provider Internal Medicine; Emergency Provider Emergency Medicine; PCP Family Medicine; Referring Provider Emergency Medicine; Visit Provider Internal Medicine
DX: R41.0 Disorientation, unspecified (principal); R47.81 Slurred speech; G47.33 Obstructive sleep apnea (adult) (pediatric); I12.9 Hypertensive chronic kidney disease with stage 1 through stage 4 chronic kidney disease, or unspecified chronic kidney disease; N18.30 Chronic kidney disease, stage 3 unspecified; I48.91 Unspecified atrial fibrillation; D72.829 Elevated white blood cell count, unspecified; Z20.822 Contact with and (suspected) exposure to COVID-19
CPT/HCPCS: 36415; 70450; 71045; 80048; 80053; 80305; 80320; 80329; 82140; 82550; 82553; 83690; 83735; 84443; 84484; 85025; 87635; 87797; 93005; 93306; 96365; 96366; 96375; 99285; 99291; C9803; G0378; G0480

== ENCOUNTER → 2024-11-19 12:06 | Outpatient (CLI) | payer MEDICARE, SELFPAY ==
[2020-09-22 17:51] VITALS: BMI 32.7
[2024-11-19 13:02] LABS: Add Manual Diff / Slide Review NO; Hematocrit 42.7 % (41-53); Hemoglobin 14.3 g/dL (13.5-17.5); Lymphocytes Absolute Auto 1300 /uL (1100-4500); Mean Corpuscular HGB Conc 33.6 % (30-36); Mean Corpuscular Hemoglobin 27.7 PG (26-34); Mean Corpuscular Volume 82.5 fL (80-100); Platelet Count 304 X10^3/uL (150-400)
[2024-11-19 13:15] LABS: Alanine Aminotransferase 23 IU/L (<50); Albumin 4.4 g/dL (3.5-5.0); Albumin Globulin Ratio 1.3 (1.0-2.8); Alkaline Phosphatase 70 U/L (38-126); Blood Urea Nitrogen 21 mg/dL (9-20); Calcium 9.5 mg/dL (8.4-10.2); Carbon Dioxide 26 mmol/L (22-32); Chloride 102 mmol/L (98-107); Estimated Glomerular Filt Rate 55 mL/min (>60); Globulin 3.3 g/dL (1.7-4.1); Glucose 83 mg/dL (70-99); Potassium 4.5 mmol/L (3.4-5.1); Sodium 139 mmol/L (137-145); Total Protein 7.7 g/dL (6.3-8.2); Uric Acid 4.8 mg/dL (3.5-8.5)
[2024-11-19 13:16] LABS: HEMOLYSIS 56 (0-50)
== END ==
PROVIDERS: PCP Family Medicine; Referring Provider Family Medicine; Visit Provider Family Medicine
DX: M25.461 Effusion, right knee (principal)
CPT/HCPCS: 36415; 80053; 84550; 85025